=== PATIENT | female | born 1995 | race Caucasian/White ===

== ENCOUNTER 2017-11-02 14:15 | Emergency (ER) | payer MEDICAID ==
[~2017-11-02] VITALS: Ht 172.7 cm; Wt 89.9 kg
[2017-11-02] MEDS ORDERED: SODIUM CHLORIDE 0.9% 1,000ML IVBOLUS ONE (15:00)
[2017-11-02] MEDS ORDERED: SODIUM CHLORIDE FLUSH 10ML SYR IVF ONE (15:00)
[2017-11-02] MEDS ORDERED: ONDANSETRON 2MG/ML, 2ML IVPush ONE (15:00)
[2017-11-02 15:06] LABS: BASOPHILS # (AUTO) 0.04 x10^3/uL (0-0.3); BASOPHILS % (AUTO) 0 % (0-1); EOSINOPHILS # (AUTO) 0.02 x10^3/uL (0-0.8); EOSINOPHILS % (AUTO) 0 % (1-7); LYMPHOCYTES # (AUTO) 0.59 x10^3/uL (1-6.1); LYMPHOCYTES % (AUTO) 5 % (22-44); MD NO; MEAN CORPUSCULAR HEMOGLOBIN 33.3 pg (27.0-34.8); MEAN CORPUSCULAR HGB CONC 33.8 g/dL (32.4-35.8); MEAN CORPUSCULAR VOLUME 98.4 fL (80-100); MEAN PLATELET VOLUME 7.6 fL (7.4-10.4); MONOCYTES # (AUTO) 0.44 x10^3/uL (0-1.4); MONOCYTES % (AUTO) 3 % (2-9); NEUTROPHILS # (AUTO) 11.54 x10^3/uL (1.8-8.0); NEUTROPHILS % (AUTO) 91 % (42-75); PLATELET COUNT 189 x10^3/uL (130-400); RED BLOOD COUNT 4.69 x10^6/uL (3.82-5.3); RED CELL DISTRIBUTION WIDTH 12.7 % (9.6-15.2)
[2017-11-02 15:18] LABS: CALCIUM 8.6 mg/dL (8.5-10.1); CHLORIDE 105 mmol/L (98-107)
[2017-11-02 15:27] LABS: ALANINE AMINOTRANSFERASE 25 U/L (12-78); ALBUMIN 4.3 g/dL (3.4-5.0); ALKALINE PHOSPHATASE 85 U/L (45-117); ANION GAP 9 mmol/L (5-15); BILIRUBIN,TOTAL 0.5 mg/dL (0.2-1.0); CREATININE 0.76 mg/dL (0.55-1.02); TOTAL PROTEIN 7.9 g/dL (6.4-8.2)
[2017-11-02] MEDS ORDERED: ONDANSETRON 2MG/ML, 2ML ONE (17:40)
[2017-11-02 18:11] LABS: MICROSCOPIC INDICATED
[2017-11-02 18:17] LABS: CULTURE INDICATED? NO
[2017-11-02 18:52] VITALS: BP 113/53
== END 2017-11-02 19:18 | disposition home or self-care (01) ==
LOC: ED 18:58
DX: R11.2 Nausea with vomiting, unspecified (principal); R10.13 Epigastric pain; R10.84 Generalized abdominal pain
CPT/HCPCS: 36415; 80053; 81001; 83690; 84703; 85025; 96361; 96374; 99284; J2405; J7030

== ENCOUNTER 2017-12-23 19:35 | Emergency (ER) | payer MEDICAID ==
[~2017-12-23] VITALS: Ht 170.2 cm; Wt 89.3 kg
[2017-12-23 20:29] LABS: BASOPHILS # (AUTO) 0.03 x10^3/uL (0-0.3); BASOPHILS % (AUTO) 0 % (0-1); EOSINOPHILS # (AUTO) 0.05 x10^3/uL (0-0.8); EOSINOPHILS % (AUTO) 1 % (1-7); LYMPHOCYTES # (AUTO) 2.72 x10^3/uL (1-6.1); LYMPHOCYTES % (AUTO) 35 % (22-44); MD NO; MEAN CORPUSCULAR HEMOGLOBIN 33.7 pg (27.0-34.8); MEAN CORPUSCULAR HGB CONC 34.2 g/dL (32.4-35.8); MEAN CORPUSCULAR VOLUME 98.8 fL (80-100); MEAN PLATELET VOLUME 7.8 fL (7.4-10.4); MONOCYTES # (AUTO) 0.62 x10^3/uL (0-1.4); MONOCYTES % (AUTO) 8 % (2-9); NEUTROPHILS # (AUTO) 4.36 x10^3/uL (1.8-8.0); NEUTROPHILS % (AUTO) 56 % (42-75); PLATELET COUNT 213 x10^3/uL (130-400); RED BLOOD COUNT 4.08 x10^6/uL (3.82-5.3); RED CELL DISTRIBUTION WIDTH 13.1 % (9.6-15.2)
[2017-12-23] MEDS ORDERED: SODIUM CHLORIDE FLUSH 10ML SYR IVF ONE (20:30)
[2017-12-23] MEDS ORDERED: ONDANSETRON 2MG/ML, 2ML IVPush ONE (20:30)
[2017-12-23] MEDS ORDERED: MORPHINE SULFATE 4 MG/ML, 1ML IVPush PRN (20:30)
[2017-12-23] MEDS ORDERED: DIPHENHYDRAMINE 50 MG/ML, 1ML IVPush ONE (20:30)
[2017-12-23] MEDS ORDERED: methylPREDNISolone SOD SUCC 125 MG/2 ML IVPush SCH (20:30)
[2017-12-23] MEDS ORDERED: DIPHENHYDRAMINE 50 MG/ML, 1ML ONE (20:32)
[2017-12-23] MEDS ORDERED: methylPREDNISolone SOD SUCC 125 MG/2 ML ONE (20:32)
[2017-12-23] MEDS ORDERED: MORPHINE SULFATE 4 MG/ML, 1ML ONE (20:32)
[2017-12-23] MEDS ORDERED: ONDANSETRON 2MG/ML, 2ML ONE (20:32)
[2017-12-23 20:37] LABS: ALANINE AMINOTRANSFERASE 23 U/L (12-78); ALBUMIN 3.6 g/dL (3.4-5.0); ANION GAP 6 mmol/L (5-15); CALCIUM 8.4 mg/dL (8.5-10.1); CHLORIDE 110 mmol/L (98-107); CREATININE 0.83 mg/dL (0.55-1.02)
[2017-12-23 20:41] LABS: ALKALINE PHOSPHATASE 73 U/L (45-117); BILIRUBIN,TOTAL 0.2 mg/dL (0.2-1.0); TOTAL PROTEIN 6.8 g/dL (6.4-8.2)
[2017-12-23 21:26] VITALS: BP 107/56
[2017-12-23] MEDS ORDERED: OMNIPAQUE 350 MG/ML, 100ML BOTTLE ONE (23:49)
== END 2017-12-23 22:11 | disposition home or self-care (01) ==
LOC: ED 21:33
DX: S30.1XXA Contusion of abdominal wall, initial encounter (principal); S70.11XA Contusion of right thigh, initial encounter; S80.12XA Contusion of left lower leg, initial encounter; S80.11XA Contusion of right lower leg, initial encounter; V44.5XXA Car driver injured in collision with heavy transport vehicle or bus in traffic accident, initial encounter; Y93.89 Activity, other specified; Y92.411 Interstate highway as the place of occurrence of the external cause; Y99.8 Other external cause status
CPT/HCPCS: 36415; 70450; 71250; 72125; 74177; 80053; 84703; 85025; 96374; 96375; 99285; J1200; J2405; J2930; Q9967

== ENCOUNTER 2018-10-03 16:49 | Emergency (ER) | payer MEDICAID ==
[~2018-10-03] VITALS: Ht 170.2 cm; Wt 82.5 kg
[2018-10-03 16:52] VITALS: BP 130/85
[2018-10-03 17:16] LABS: BASOPHILS # (AUTO) 0.03 x10^3/uL (0-0.1); BASOPHILS % (AUTO) 0 % (0-1); EOSINOPHILS # (AUTO) 0.08 x10^3/uL (0-0.4); EOSINOPHILS % (AUTO) 1 % (1-7); LYMPHOCYTES # (AUTO) 2.67 x10^3/uL (1-3.4); LYMPHOCYTES % (AUTO) 33 % (22-44); MD NO; MEAN CORPUSCULAR HEMOGLOBIN 33.7 pg (27.0-34.8); MEAN CORPUSCULAR HGB CONC 34.4 g/dL (32.4-35.8); MEAN PLATELET VOLUME 7.6 fL (7.4-10.4); MONOCYTES # (AUTO) 0.56 x10^3/uL (0.2-0.8); MONOCYTES % (AUTO) 7 % (2-9); NEUTROPHILS # (AUTO) 4.67 x10^3/uL (1.8-6.8); NEUTROPHILS % (AUTO) 58 % (42-75); PLATELET COUNT 214 x10^3/uL (130-400); RED BLOOD COUNT 4.06 x10^6/uL (3.82-5.3); RED CELL DISTRIBUTION WIDTH 12.7 % (9.6-15.2)
[2018-10-03 17:25] LABS: ALBUMIN 4.3 g/dL (3.4-5.0); ANION GAP 4 mmol/L (5-15); CALCIUM 8.8 mg/dL (8.5-10.1); CHLORIDE 107 mmol/L (98-107); CREATININE 0.78 mg/dL (0.55-1.02)
== END 2018-10-03 18:08 | disposition home or self-care (01) ==
LOC: ED 17:45
DX: R07.89 Other chest pain (principal)
CPT/HCPCS: 36415; 71045; 80048; 82040; 85025; 93005; 99284

== ENCOUNTER 2018-12-05 05:43 | Emergency (ER) | payer MEDICAID ==
[~2018-12-05] VITALS: Ht 170.2 cm; Wt 76.0 kg
[2018-12-05 05:50] VITALS: BP 128/61
--- NOTE | 2018-12-05 06:00 | NUR ---
EKG DONE IN TRIAGE
[2018-12-05] MEDS ORDERED: ACETAMINOPHEN 500 MG TABLET PO ONE (06:30)
[2018-12-05] MEDS ORDERED: ACETAMINOPHEN 500 MG TABLET ONE (06:35)
== END 2018-12-05 07:10 | disposition home or self-care (01) ==
LOC: ED 06:29
DX: J02.9 Acute pharyngitis, unspecified (principal); Z87.891 Personal history of nicotine dependence
CPT/HCPCS: 93005; 99283

== ENCOUNTER 2019-08-25 16:37 | Emergency (ER) | payer MEDICAID, OTHER ==
[~2019-08-25] VITALS: Ht 170.2 cm; Wt 76.5 kg
[2019-08-25 17:15] LABS: BASOPHILS # (AUTO) 0.03 x10^3/uL (0-0.1); BASOPHILS % (AUTO) 0 % (0-1); EOSINOPHILS # (AUTO) 0.03 x10^3/uL (0-0.4); EOSINOPHILS % (AUTO) 0 % (1-7); LYMPHOCYTES # (AUTO) 2.58 x10^3/uL (1-3.4); LYMPHOCYTES % (AUTO) 34 % (22-44); MD NO; MEAN CORPUSCULAR HEMOGLOBIN 33.2 pg (27.0-34.8); MEAN CORPUSCULAR HGB CONC 32.8 g/dL (32.4-35.8); MEAN CORPUSCULAR VOLUME 101.2 fL (80-100); MONOCYTES # (AUTO) 0.51 x10^3/uL (0.2-0.8); MONOCYTES % (AUTO) 7 % (2-9); NEUTROPHILS # (AUTO) 4.36 x10^3/uL (1.8-6.8); NEUTROPHILS % (AUTO) 58 % (42-75); PLATELET COUNT 216 x10^3/uL (130-400); RED BLOOD COUNT 4.18 x10^6/uL (3.82-5.3); RED CELL DISTRIBUTION WIDTH 12.8 % (9.6-15.2)
[2019-08-25 17:23] LABS: ANION GAP 6 mmol/L (5-15); CALCIUM 8.8 mg/dL (8.5-10.1); CHLORIDE 106 mmol/L (98-107); CREATININE 0.81 mg/dL (0.55-1.02)
--- NOTE | 2019-08-25 18:24 | NUR ---
CLERK RATING: PT AMBULATORY WITH STEADY GAIT TO ROOM AT THIS TIME. ИРИНА
--- NOTE | 2019-08-25 18:31 | NUR ---
PT AMB TO BR WITH STEADY GAIT FOR UA.
--- NOTE | 2019-08-25 18:35 | NUR ---
FIRST CONTACT WITH PT. PT C/O LWER BACK AND PELVIS PAIN, PAINFUL URINATION. PT'S AOX4. RESPS EVEN ADN UNLABORED. BP/SPO2 MONITORS IN PLACE. CALL LIGHT WITHIN REACH. PT'S FRIEND AT BEDSIDE.
--- NOTE | 2019-08-25 18:49 | NUR ---
REPORT GIVEN TO NICK MULLER.
--- NOTE | 2019-08-25 18:57 | NUR ---
Assumed care of pt using AIDET. Pt reports low back pain since last and dysuria. Pt repositioned on gurcascade for comfort. Aware waiting for test results and chart review by ERP.
[2019-08-25] MEDS ORDERED: CYCLOBENZAPRINE 10 MG TABLET ONE (19:11)
[2019-08-25] MEDS ORDERED: KETOROLAC 30 MG/1 ML ONE (19:11)
[2019-08-25 19:13] LABS: MICROSCOPIC INDICATED
[2019-08-25 19:14] LABS: CULTURE INDICATED? YES
--- NOTE | 2019-08-25 19:20 | NUR ---
PT MEDICATED ORDERED. PT REQUESTING WORK NOTE UPON DISCHARGE.
[2019-08-25] MEDS ORDERED: CYCLOBENZAPRINE 10 MG TABLET PO ONE (19:30)
[2019-08-25] MEDS ORDERED: KETOROLAC 30 MG/1 ML IM ONE (19:30)
[2019-08-25 19:54] VITALS: BP 118/50
--- NOTE | 2019-08-25 19:54 | NUR ---
REVIEWED DISCHARGE INSTRUCTIONS AND PRINTED PRESCRIPTIONS X2 W/ PT, VERBALIZED UNDERSTANDING TO INFORMATION PROVIDED INCLUDING FOLLOW UP CARE, MEDICATION PRECAUTIONS AND RETURN PRECAUTIONS. PT PROVIDED W/ ONE DAY WORK RELEASE NOTE BY ERP. PT AMBULATED FROM ED W/ FRIEND.
== END 2019-08-25 19:58 | disposition home or self-care (01) ==
LOC: ED 19:52
DX: S39.012A Strain of muscle, fascia and tendon of lower back, initial encounter (principal); M47.896 Other spondylosis, lumbar region; E87.6 Hypokalemia; R30.9 Painful micturition, unspecified; R11.0 Nausea; Z88.5 Allergy status to narcotic agent; Z91.041 Radiographic dye allergy status; Z91.013 Allergy to seafood; X58.XXXA Exposure to other specified factors, initial encounter; Y93.89 Activity, other specified; Y92.89 Other specified places as the place of occurrence of the external cause; Y99.8 Other external cause status
CPT/HCPCS: 36415; 72110; 80048; 81001; 84703; 85025; 87086; 96372; 99284; J1885

== ENCOUNTER 2019-12-22 14:08 | Emergency (ER) | payer MEDICAID, OTHER ==
--- NOTE | 2019-12-22 14:54 | NUR ---
No answer when pt called for triage.
--- NOTE | 2019-12-22 15:04 | NUR ---
No answer when pt called for triage.
--- NOTE | 2019-12-22 15:17 | NUR ---
No answer when pt called for triage.
== END 2019-12-22 15:19 | disposition left against medical advice (07) ==
LOC: ED 15:17
DX: N93.9 Abnormal uterine and vaginal bleeding, unspecified (principal); Z53.21 Procedure and treatment not carried out due to patient leaving prior to being seen by health care provider